=== PATIENT | female | born 1980 | race Caucasian/White ===

== ENCOUNTER 2021-09-02 10:41 | Emergency (ER) | payer MEDICARE, MEDICAID ==
[~2021-09-02] VITALS: Ht 177.8 cm; Wt 79.5 kg
[2021-09-02 11:04] VITALS: BP 135/92
== END 2021-09-02 18:33 | disposition left against medical advice (07) ==
LOC: ER 10:43
DX: Z00.8 Encounter for other general examination (principal); Z53.21 Procedure and treatment not carried out due to patient leaving prior to being seen by health care provider

== ENCOUNTER 2022-03-23 20:34 | Emergency (ER) | payer MEDICARE, MEDICAID ==
[~2022-03-23] VITALS: Ht 165.1 cm; Wt 71.4 kg
[2022-03-23 20:44] VITALS: BP 116/77
== END 2022-03-24 00:17 | disposition left against medical advice (07) ==
LOC: ER 20:36
DX: F29 Unspecified psychosis not due to a substance or known physiological condition (principal); Z53.21 Procedure and treatment not carried out due to patient leaving prior to being seen by health care provider